=== PATIENT | male | born 2000 | race Caucasian/White ===

== ENCOUNTER 2021-04-22 19:22 | Emergency (ER) | payer MEDICAID ==
[2021-04-22] MEDS ORDERED: Bacitracin Oint 1 GM U/D Packet TOP ONE (20:03)
--- NOTE | 2021-04-22 20:09 | EDM.PDOC ---
ED HPI GENERAL MEDICAL PROBLEM - General Chief Complaint: Bite:Animal, Insect Stated Complaint: CAT BITE Time Seen by Provider: 04/22/21 19:45 Source of Information: Reports: Patient, Family History Limitations: Reports: No Limitations - History of Present Illness INITIAL COMMENTS - FREE TEXT/NARRATIVE: 21-year-old male was trying to take a cat off of a shelf when it attacked his hand and scratched or bit his index finger and he also sustained a few puncture wounds over the metacarpal joints on the back of his hand. Their concern is the laceration. Onset: Sudden Duration: Hour(s): (1 hour ago) Location: Reports: Upper Extremity, Right Associated Symptoms: Reports: No Other Symptoms Treatments [employer]: Reports: Dressing(s) - Related Data Allergies Allergy/AdvReac Type Severity Reaction Status Date / Time cephalexin [From Keflex] Allergy Rash Verified 04/22/21 19:41 Home Meds: Home Meds [place] Carbonate [Eskalith CR] 450 mg PO DAILY 04/22/21 [History] Past Medical History - Past Health History Medical/Surgical History: Denies Medical/Surgical History Psychiatric History: Reports: ADHD - Past Surgical History Musculoskeletal Surgical History: Reports: Other (See Below) Other Musculoskeletal Surgeries/Procedures:: removal of breast tissue Social & Family History - Tobacco Use Tobacco Use Status *Q: Current Every Day Tobacco User Years of Tobacco use: 4 Packs/Tins Daily: 0.5 - Caffeine Use Caffeine Use: Reports: Coffee - Recreational Drug Use Recreational Drug Use: No ED ROS GENERAL - Review of Systems Review Of Systems: See Below Constitutional: Denies: Fever, Chills HEENT: Reports: No Symptoms Respiratory: Denies: Shortness of Breath Cardiovascular: Denies: Chest Pain GI/Abdominal: Denies: Nausea, Vomiting Neurological: Denies: Paresthesia ED EXAM, ANIMAL BITE - Physical Exam Exam: See Below Exam Limited By: No Limitations General Appearance: Alert, No Apparent Distress Head: Atraumatic Respiratory/Chest: No Respiratory Distress, Lungs Clear Cardiovascular: Regular Rate, Rhythm Extremities: Other (Exam is otherwise limited the right hand. The patient has a superficial transverse laceration around the right index finger that is 4 cm long, it does extend through to the subcutaneous tissue but is only a few millimeters wide) Psychiatric: Normal Affect, Normal Mood Course - Vital Signs Last Recorded V/S: Last Vital Signs Temp 98 F 04/22/21 19:45 Pulse 89 04/22/21 19:45 Resp 16 04/22/21 19:45 BP 122/78 04/22/21 19:45 Pulse Ox 95 04/22/21 19:45 - Orders/Labs/Meds Meds: Medications Discontinued Medications Generic Name Dose Route Start Last Admin Trade Name Chen PRN Reason Stop Dose Admin Bacitracin 1 dose 04/22/21 20:03 04/22/21 20:18 Bacitracin Oint 1 Gm U/D Packet TOP 04/22/21 20:04 1 dose ONETIME ONE Administration - Re-Assessments/Exams Free Text/Narrative Re-Assessment/Exam: 04/22/21 20:07 Even with tension I cannot open this wound further than 2 or 3 mm. Despite the subcutaneous tissue being exposed, because this is an animal bite or scratch, leaving this open with topical and oral antibiotics and keeping it clean is probably the best treatment. Topical bacitracin and bandages were applied and he was started on Augmentin twice daily. He was encouraged to keep the wound clean while healing, covered for protection, and recheck if worsening despite treatment. Departure - Departure Time of Disposition: 20:20 Disposition: Home, Self-Care 01 Clinical Impression: Cat bite of right hand Qualifiers: Encounter type: initial encounter Qualified Code(s): S61.451A - Open bite of right hand, initial encounter - Discharge Information Instructions: Animal Bite, Adult, [id number] Referrals: PCP,None [Primary Care Provider] - Forms: ED Department Discharge Care Plan Goals: Keep wounds clean and covered if possible while healing. Take antibiotic twice a day with food, ibuprofen or Aleve will help with discomfort. If infection starts it will be in a few days, recheck anytime if concerns of infection or not healing satisfactorily. Sepsis Event Note (ED) - Evaluation Sepsis Screening Result: No Definite Risk - Focused Exam Vital Signs: Vital Signs Temp Pulse Resp BP Pulse Ox 04/22/21 19:45 98 F 89 16 122/78 95
== END 2021-04-22 20:15 | disposition home or self-care (01) ==
LOC: JP.ED 19:22
DX: S61.250A Open bite of right index finger without damage to nail, initial encounter (principal); Z72.0 Tobacco use; Z88.1 Allergy status to other antibiotic agents; W55.01XA Bitten by cat, initial encounter
CPT/HCPCS: 90471; 99283